=== PATIENT | male | born 1990 | race Caucasian/White ===

== ENCOUNTER 2021-12-25 23:06 | Emergency (ER) | payer SELFPAY ==
[~2021-12-25] VITALS: Ht 180.3 cm; Wt 77.3 kg
[2021-12-26] MEDS ORDERED: silver sulfadiazine cream 400gm jar TP SCH (01:05)
[2021-12-26 07:33] VITALS: BP 110/55
== END 2021-12-26 07:36 | disposition home or self-care (01) ==
LOC: ER 23:07
DX: S02.40EA Zygomatic fracture, right side, initial encounter for closed fracture (principal); S09.93XA Unspecified injury of face, initial encounter; T22.111A Burn of first degree of right forearm, initial encounter; T31.0 Burns involving less than 10% of body surface; F10.129 Alcohol abuse with intoxication, unspecified; Y90.0 Blood alcohol level of less than 20 mg/100 ml; Y04.8XXA Assault by other bodily force, initial encounter; Y93.89 Activity, other specified; Y92.89 Other specified places as the place of occurrence of the external cause; Y99.8 Other external cause status
CPT/HCPCS: 16000; 70450; 70486; 72125; 99284